=== PATIENT | male | born 1980 | race Caucasian/White ===

== ENCOUNTER 2019-08-18 15:40 | Emergency (ER) | payer OTHER | END 2019-08-18 18:13 | disposition other institution (70) | LOC: ED 15:40 | DX: Z02.89 Encounter for other administrative examinations (principal) ==

== ENCOUNTER 2019-08-18 15:40 | Emergency (ER) | payer OTHER ==
[~2019-08-18] VITALS: Ht 167.6 cm; Wt 81.6 kg
[2019-08-18 15:53] VITALS: Ht 167.6 cm; Wt 81.6 kg
[2019-08-18 18:13] VITALS: BP 133/95
== END 2019-08-18 18:13 | disposition other institution (70) ==
LOC: ED 15:40
DX: S71.111A Laceration without foreign body, right thigh, initial encounter (principal); S91.011A Laceration without foreign body, right ankle, initial encounter; S81.811A Laceration without foreign body, right lower leg, initial encounter; W54.0XXA Bitten by dog, initial encounter; Y93.89 Activity, other specified; Y92.89 Other specified places as the place of occurrence of the external cause; Y99.8 Other external cause status
CPT/HCPCS: J0696; J1885; J2001; Q0092